=== PATIENT | female | born 1940 | race Caucasian/White ===

== ENCOUNTER 2025-09-16 13:47 | Emergency (ER) | payer MEDICARE, OTHER, SELFPAY ==
[2025-09-16 13:50] VITALS: BP 120/51
--- NOTE | 2025-09-16 15:33 | ED.MUSCINJ ---
HPI-Injury
General
Chief Complaint: Musculo-Skeletal Complaint
Source: patient
Exam Limitations: none
Time Seen by Provider: 09/16/25 15:22
History of Present Illness-Injury
Initial Injury comments:
84-year-old female [id number] presents complaining of left wrist forearm and shoulder pain after fall she sustained today. She went to sit on a chair that was overloaded with clothing and she toppled over to the left side. She not hit her
head. She typically wears oxygen. No other complaints at this time
Phy Exam
Physical Exam
Physical Exam:
General: Well-appearing female no acute respiratory distress
HEENT: Normal cephalic atraumatic no abrasions or hematomas
Musculoskeletal exam: Left wrist mildly diffusely tender with tenderness spreading into the forearm elbow and distal humeral area. No significant swelling or deformity. She has good range of motion at the elbow and the wrist. Shoulder has good
passive motion.
Skin is intact without laceration
Injury Course
Orders/Labs/Results
Orders:
Orders
09/16/25 13:49
Forearm, Left 2 View [CR Forearm - Left 2 View] Urgent
Comment:
Reason For Exam: injury
09/16/25 14:06
Shoulder, Left, Trauma CR [CR Shoulder, Trauma - Left] Urgent
Comment:
Reason For Exam: fall
09/16/25 15:33
[place] Wrist Left-Treatment ONCE
MDM/Problems Addressed
Differential Diagnosis Includes:
Mechanical fall with left arm pain. Consider sprain versus fracture versus dislocation
X-rays were ordered to evaluate for fracture or dislocation I have personally visualized x-rays of the left humerus and left forearm both of which were negative. I suspect underlying sprain. Velcro splint applied stable for discharge with follow-up
*Pulse Oximetry
SaO2: 93
Nasal Cannula flow liters per minute: 3
Patient hypoxic: no
*Critical Care Note
Total Time (30-74mins, 75-104mins- exclusive of procedures): Not Applicable
ED Attending Note
-
Portions of this chart may have been created with voice recognition software.� Occasional wrong word or��sound alike� substitutions may have occurred due to the inherent limitations of voice recognition software.
Discharge Plan
Departure
Patient Disposition: Home (Routine Discharge)
Date of Disposition: 09/16/25
Time of Disposition: 15:35
Patient with high blood pressure during this ER visit?: No
Discharge Problem:
Left wrist sprain
Instructions: Muscle and Bone Pain (DC)
Prescriptions:
No Action
Synthroid 150 MCG
150 mcg PO ONCE
metoprolol succinate 100 MG tablet extended release 24 hr
100 mg PO DAILY
ranitidine HCl [Zantac] 150 MG tablet
150 mg PO BID
clopidogrel 75 MG tablet
75 mg PO DAILY
aspirin 81 MG tablet,delayed release (DR/EC)
81 mg PO DAILY
losartan 100 MG tablet
100 mg PO ONCE
allopurinol 100 MG tablet
100 mg PO DAILY
atorvastatin 40 MG tablet
40 mg PO QPM
furosemide 20 MG tablet
20 mg PO DAILY
Coq10 300 MG
300 mg PO DAILY
fluticasone propionate 1 SPRAY spray,suspension
1 spray intranasal BID
Activity Restrictions/Additional Instructions:
Rest. Use ibuprofen or Tylenol for pain pews a splint for support. Return if worse otherwise follow-up with your doctor
Interventions
Interventions:
*Risk Screen - Suicide Last Done: 09/16/25 13:50
*General Assessment Last Done: 09/16/25 13:50
*Neglect/Abuse Screening Last Done: 09/16/25 13:50
*ED- Fall Risk Assessment Last Done: 09/16/25 13:50
*ED COVID-19 Vaccine History Last Done: 09/16/25 13:55
*ED Influenza Vaccine History Last Done: 09/16/25 13:55
Discharge Date and Time
Print Language: SERBIAN
== END 2025-09-16 16:53 | disposition home or self-care (01) ==
LOC: EMR 13:47
PROVIDERS: EMERGENCY PHYSICIAN Emergency Medicine
DX: S63.502A Unspecified sprain of left wrist, initial encounter (principal); W19.XXXA Unspecified fall, initial encounter; Z99.81 Dependence on supplemental oxygen
CPT/HCPCS: 29125; 99283; 73030; 73090